=== PATIENT | female | born 1940 | race Caucasian/White ===

== ENCOUNTER → 2022-04-23 11:18 | Outpatient (CLI) | payer MEDICARE, SELFPAY ==
--- NOTE | ~2022-04-23 | XR_ITS ---
EXAMINATION: XR hip RT min 2V DATE: 04/23/2022 11:57 INDICATION: Right hip pain TECHNIQUE: Anteroposterior and frog-leg lateral views of the right hip were obtained. COMPARISON: None. FINDINGS: Noncemented bipolar type right hip hemiarthroplasty which is well seated in near-anatomic alignment. No fracture. 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 Soft tissues are unremarkable. IMPRESSION: 1. Expected appearance of the bipolar type right hip hemiarthroplasty. No acute osseous abnormality. Reviewed, dictated and finalized at location B.
--- NOTE | ~2022-04-23 | XR_ITS ---
EXAMINATION: XR shoulder LT min 2V, XR shoulder RT min 2V DATE: 04/23/2022 11:57 INDICATION: Unspecified bilateral shoulder pain TECHNIQUE: 1. AP internally and externally rotated, AP oblique externally rotated and axillary views of the left shoulder were obtained. 2. AP internally and externally rotated, AP oblique externally rotated and axillary views of the righ t shoulder were obtained. COMPARISON: None FINDINGS: Normal alignment at both shoulders. No fracture.Mild bilateral glenohumeral osteoarthritis with mini mal nonuniform joint space narrowing and tiny marginal osteophytes. Mild bilateral acromioclavicular osteoarthritis with small amount of chondrocalcinosis versus dystrophic calcification at the cephalad aspect of both joint spaces. Additional sagittal and occasional along the distal right supraspinatus tendon consistent with calcific tendinitis. No erosions. Visualized portions of the bilateral upper lungs are clear. IMPRESSION: 1. 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 No acute osseous abnormality. 2. Mild right supraspinatus calcific tendinitis. Reviewed, dictated and finalized at location B. IMPRESSION: 1. 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 No acute osseous abnormality. 2. Mild right supraspinatus calcific tendinitis.
== END ==
PROVIDERS: PCP Nurse Practitioner Family; Visit Provider Nurse Practitioner Family
DX: Z96.641 Presence of right artificial hip joint (principal); M19.012 Primary osteoarthritis, left shoulder; M19.011 Primary osteoarthritis, right shoulder; M70.61 Trochanteric bursitis, right hip
CPT/HCPCS: 73030; 73502

== ENCOUNTER → 2022-07-01 14:57 | Outpatient (CLI) | payer MEDICARE, SELFPAY ==
--- NOTE | ~2022-07-01 | DEXA_ITS ---
Bone Density Report Name: CHRISSY ELLIS Age: 81 Sex: Female Ethnicity: White Date of : 1940 Indication: postmenopausal; screening for osteoporosis; height loss; prior fracture; hysterectomy; Referring Provider: Rishabh Moya Study: Bone densitometry was performed. Exam Date: July 01, 2022 Accession number: [id number] Bone Density: Region BMD T-score Z-score Classification AP Spine (L1-L4) 0.744 -2.8 0.0 Osteoporosis Femoral Neck (Left) 0.491 -3.2 -0.9 Osteoporosis Total Hip (Left) 0.653 -2.4 -0.3 Osteopenia World Health Organization criteria for BMD impression classify patients as: Normal (T-score at or above -1.0), Osteopenia (T-score between -1.0 and -2.5), or Osteoporosis (T-score at or below -2.5). 10-year Fracture Risk: FRAX not reported because: Some T-score for Spine Total or Hip Total or Femoral Neck at or below -2.5 Prior hip or vertebral fracture Clinical Information Provided by Patient: Have had a previous hip or vertebral fracture Has had a low trauma fracture Has used the following medications: Vitamin D Has the following medical conditions: Hysterectomy, HX OF RIGHT BREAST CA LUMPECTOMY WITH RADIATION- 1994 Patient maximum height was 64.5 Menopause Age: 46 Drinks caffeinated beverages Onset of menses at age 13 Number of children 2 Impression: The patient has established osteoporosis, based on the Left Femoral Neck T-score and the existence of a prior fracture. The patient has risk factors, including: previous fracture. Discussion: HIGH RISK OF FRACTURE. BONE DENSITY IS UNDESIRABLY LOW AT ONE OR MORE SKELETAL SITES, CONSISTENT WITH POSTMENOPAUSAL OSTEOPOROSIS. This patient's lowest T-score, in a patient who has previously fractured, meets the World Health Organization's (WHO) criteria for severe osteoporosis. In untreated patients, the risk of osteoporotic fracture increases approximately two-fold for each 1.0 SD decrease in T-score. Low bone density is not the only risk factor for fracture; also consider factors such as patient's age, frailty or poor health, risk of falling, risk of injury, previous osteoporotic fracture, family history of osteoporosis, cigarette smoking, low body weight, etc. Not everyone with low bone mineral density has osteoporosis; osteomalacia and other metabolic bone disorders should also be considered. Patients who have osteoporosis should be evaluated for specific diseases and conditions (secondary causes) that may cause or contribute to bone loss. The [place] [employer]ocrin[employer] (AACE) and National Osteoporosis Foundation (NOF) recommend pharmacologic intervention for all postmenopausal women with a previous hip or vertebral fracture and a T-score in this range. The patient should follow a healthful lifestyle (good nutrition with adequate calcium and vitamin D, and appropriate
== END ==
PROVIDERS: PCP Nurse Practitioner Family; Visit Provider Nurse Practitioner Family
DX: Z78.0 Asymptomatic menopausal state (principal); M81.0 Age-related osteoporosis without current pathological fracture; M85.852 Other specified disorders of bone density and structure, left thigh
CPT/HCPCS: 77080

== ENCOUNTER 2023-03-08 12:19 | Outpatient (CLI) | payer MEDICARE, SELFPAY ==
[2023-03-08 13:09] LABS: Appearance Urine Clear (Clear); Bacteria Urine None Seen /hpf; Bilirubin Urine Negative (Negative); Blood Urine Negative (Negative); Color Urine Yellow (Yellow); Glucose Urine UA Negative (Negative); Ketones Urine Negative (Negative); Leukocyte Esterase Ur Trace LEU/UL (NEGATIVE); Nitrate Urine Negative (Negative); Non Pathogenic Casts 0-2; Protein Urine Negative (Negative); RBC Urine 0-2 /hpf (0-2); Squamous Epithelial Cell Urine Occasional /hpf (Few); Urobilinogen Urine 0.2 mg/dL (<2.0); WBC Urine 0-5 /hpf (0-3); pH Urine 5.5 (5.0-9.0)
[2023-03-08 13:20] LABS: Add Urine Microscopic? YES
== END 2023-03-08 12:20 | disposition home or self-care (01) ==
PROVIDERS: PCP Nurse Practitioner Family; Visit Provider Family Medicine
DX: R41.89 Other symptoms and signs involving cognitive functions and awareness (principal); R30.0 Dysuria
CPT/HCPCS: 81001; 87086

== ENCOUNTER 2023-03-24 09:01 | Outpatient (CLI) | payer MEDICARE, SELFPAY ==
--- NOTE | ~2023-03-24 | CT_ITS ---
Clinical Indication: Pulmonary nodules CT Scan of the Chest with Contrast: Technique: Contiguous sections were acquired throughout the chest after intravenous administration of 75 cc of Omnipaque 350. Dose reduction technique was used on this scan by utilizing automated exposu re control and iterative reconstruction technique. The dose-length product (DLP) was 130.07 mGy-cm. Findings: There is no evidence of any significant mediastinal, hilar or axillary lymphadenopathy. No large cent ral pulmonary embolus seen. There is no evidence of aortic dissection or aneurysm. There is no evidence of pleural or pericardial effusion. There is a 9 mm groundglass nodular opacity in the right lower lobe (axial image 80). There is sugges tion of a very subtle 13 mm groundglass opacity in the right lower lobe (axial image 51). There are p robably very subtle area of groundglass opacity at the lingula (axial image 63). Images through the upper abdomen reveal no abnormalities. Impression: Subtle areas of groundglass opacification the lungs, as detailed above, nonspecific. Comparison with any prior exams at other institutions, if available, would be useful to assess for chronicity of thes e findings. At a minimum, one year follow-up CT advised. Reviewed, dictated and finalized at location . Impression: Subtle areas of groundglass opacification the lungs, as detailed above, nonspec ific. Comparison with any prior exams at other institutions, if available, woul d be useful to assess for chronicity of these findings. At a minimum, one year follow-up CT advised.
[2023-03-24 09:21] LABS: Estimated Glomerular Filt Rate 48
== END 2023-03-24 09:02 | disposition home or self-care (01) ==
PROVIDERS: PCP Nurse Practitioner Family; Visit Provider Family Medicine
DX: R91.8 Other nonspecific abnormal finding of lung field (principal)
CPT/HCPCS: 71260; Q9967

== ENCOUNTER 2024-03-02 12:23 | Outpatient (CLI) | payer MEDICARE, SELFPAY ==
--- NOTE | ~2024-03-02 | CT_ITS ---
CT Scan of the Chest without Contrast: Clinical Indication: Other disorder of lung, cough Technique: Contiguous sections were acquired throughout the chest without intravenous contrast. Dose reduction technique was used on this scan by utilizing automated exposure control and iterative recon struction technique. The dose-length product (DLP) was 163.55 mGy-cm. COMPARISON: 03/24/2023 Findings: There is no evidence of any significant mediastinal, hilar or axillary lymphadenopathy. The mediastin al soft tissues appear normal. There is no evidence of pleural or pericardial effusion. Stable 11 mm groundglass irregular nodule right lower lobe (axial image 82). Additional very subtle p ossible glass opacity in the more superior right lower lobe (axial image 53). Probable minimal postra diation change of the right upper lobe. Images through the upper abdomen reveal 4 mm nonobstructing left renal stone. Impression: Stable groundglass opacities/nodules in the right lung, as detailed above. Annual follow-up advised. Probable minimal postradiation change right upper lobe. Reviewed, dictated and finalized at location . Impression: Stable groundglass opacities/nodules in the right lung, as detailed above. Caitlyn brown follow-up advised. Probable minimal postradiation change right upper lobe.
== END 2024-03-02 12:24 | disposition home or self-care (01) ==
LOC: ANHIMG 12:24
PROVIDERS: PCP Family Medicine; Visit Provider Nurse Practitioner Family
DX: R91.8 Other nonspecific abnormal finding of lung field (principal); J98.4 Other disorders of lung
CPT/HCPCS: 71250